=== PATIENT | male | born 1940 | race Hispanic/Latino ===

== ENCOUNTER 2017-01-23 08:23 | Day surgery (SDC) | payer MEDICARE ==
[2017-01-14 13:11] VITALS: BMI 26.9
[2017-01-23] MEDS ORDERED: Propofol 10 mg/ml Inj (20 ML) ONE (10:16)
[2017-01-23] MEDS ORDERED: Lidocaine 1% Inj (20ml) ONE (10:46)
[2017-01-23 12:20] VITALS: RESP 18
[2017-01-23 12:23] VITALS: BP 160/85; PULSE 60; TEMP 98.1; O2SAT 99
== END 2017-01-23 12:59 | disposition home or self-care (01) ==
LOC: ENDO 08:23
PROVIDERS: ATTEND Internal Medicine Gastroenterology
DX: K31.1 Adult hypertrophic pyloric stenosis (principal); K20.9 Esophagitis, unspecified; K44.9 Diaphragmatic hernia without obstruction or gangrene; K22.2 Esophageal obstruction
CPT/HCPCS: 43239; 88305; 88342; J2704; J3010; J7040